=== PATIENT | male | born 1955 | race African-American/Black ===

== ENCOUNTER → 2020-04-10 10:58 | Outpatient (CLI) | payer MEDICARE, MEDICAID, SELFPAY | DX: Z11.59 Encounter for screening for other viral diseases (principal) | CPT/HCPCS: 87635; U0004 ==

== ENCOUNTER → 2020-04-24 05:20 | Outpatient (CLI) | payer MEDICARE, MEDICAID, SELFPAY | DX: Z11.59 Encounter for screening for other viral diseases (principal) | CPT/HCPCS: 87635; U0003 ==